=== PATIENT | female | born 1955 | race Caucasian/White ===

== ENCOUNTER → 2020-07-10 | Outpatient (CLI) | payer BC, OTHER ==
[~2020-07-10] VITALS: Ht 165.1 cm; Wt 86.2 kg
[~2020-07-10] MED LIST: COZAAR100 MG PO; MELOXICAM15 MG PO; NEURONTIN300 MG PO; TIZANIDINE HCL4 M2 PO; TRAMADOL 50 MG50 MG PO
--- NOTE | ~2020-07-10 | HPC ---
[facility] [address] [place] [address] PAIN MANAGEMENT CONSULTATION Name: LORI PEARSON Room #: REG Tamar ..#: [id number] Admission: 07/10/20 Attend Phys: Jose Kennedy DO Discharge: Date of : 53 Report #: [id number] THIS REPORT FOR: cc: MARLA HOLDER MD, JESSE MD Johnson, James E. DO ~ DATE OF SERVICE: 07/10/2020 REFERRING PHYSICIAN: Dr. Dima Nick. CHIEF COMPLAINT: Mid back pain. HISTORY OF PRESENT ILLNESS: As you know, the patient is a very pleasant 65-year-old female who reports acute onset of mid back pain, sustained an injury on 11/27/2019 when she lifted 50-pound bag of bird seed out of a cart causing instantaneous mid back pain. The patient believes she may have strained her back and trialled conservative treatment when her symptoms did not improve, she went to the Emergency Department. They reviewed the patient and concurred that she had probably sustained a strain and was given pain medications and sent home. She continues to experience increasing back pain and sought evaluation through her PCP who provided referral to see orthopedic spine surgery at [facility] [place]. The patient was seen at that clinic by a medical office technology instructor of the surgeon who sent the patient for further imaging. The patient underwent MRI of the lumbar spine, which showed acute/subacute vertebral compression fracture at T12 and subsequently underwent vertebral augmentation. Unfortunately, the augmentation did not provide much in the way of improvement in symptoms. She has been continuing to experience symptoms progressively worsening, sent to see [facility] where she was initially evaluated by nurse practitioner, who advised the patient, she would need to undergo fusion with instrumentation. The followup visit was with Dr. Nick, who advised the patient that surgical options would not be of benefit and that she should trial more conservative treatment. She was subsequently then referred to our clinic to discuss interventional treatment options. The patient continues to experience low back pain, bilateral lower extremity pain consistent with central canal stenosis, but is also experiencing some pain in and around the lower thoracic upper lumbar area, which may be related to facet arthropathy and possibly central canal stenosis due to the posterior retropulsion of the T12 vertebral body after fracture. The patient has been referred to our service to discuss those treatment options. The patient reports today pain is intermittent. She describes the pain as burning, aching and crushing. Places current pain score 3/10, daily average at 3/10, worst pain has been is 10/10. The patient states pain is exacerbated with standing, improves with sitting and lying down. She has been referred to our service to discuss interventional treatment options. [facility] [address] [place] [address] PAIN MANAGEMENT CONSULTATION Name: LORI PEARSON Room #: REG BECKY Calle#: [id number] Admission: 07/10/20 Attend Phys: Jose Kennedy DO Discharge: Date of : 53 Report #: [id number] PAST MEDICAL HISTORY: 1. Basal cell carcinoma. 2. Hypertension. 3. Hypercholesterolemia. 4. Thoracic compression fracture. PAST SURGICAL HISTORY: Kyphoplasty. SOCIAL HISTORY: The patient denies tobacco, alcohol, IV or illicit drug use. She is retired, retired years ago, not receiving workmen's compensation nor is she trying to obtain disability benefits. She is not in litigation in regards to her pain. REVIEW OF SYSTEMS: Positive for wearing corrective eyewear, low back pain, bilateral lower extremity pain with paresthesias. All other review of systems negative per 12-point review of systems other than those listed in history of present illness. Pain impact score 52/70 indicating severe interference of daily activities secondary to pain. IMAGING: MRI lumbar spine obtained on 04/05/2020 shows acute subacute T12 severe compression fracture with retropulsion. Mild canal narrowing. Multilevel lumbar spondylosis prominent at L4-L5, grade 1 anterolisthesis of L4 and L5, advanced facet arthropathy, moderate central canal and severe subarticular bilateral recess narrowing. PHYSICAL EXAMINATION: VITAL SIGNS: Blood pressure 191/110, pulse 114, respiratory rate 18 and unlabored. The patient is 95% on room air. Height 5 feet 5 inches tall, weight 190 pounds, BMI calculated 31.6. GENERAL: Well-developed, well-nourished, well-hydrated 65-year-old female, appearing her stated age. She is placing current pain score 3/10. HEENT: Normocephalic, atraumatic. Pupils equal, round and reactive. Extraocular muscles are intact. Sclerae nonicteric without injection. NEUROLOGIC: Cranial nerves 2-12 grossly intact. Speech is fluent. The patient is wearing a mask in compliance with COVID-19 regulations. LUNGS: Clear, no wheeze, rhonchi or rales. CARDIOVASCULAR: Regular. No appreciable gallop, no rub. ABDOMEN: Soft, nontender, mildly obese, normoactive bowel sounds. EXTREMITIES: Show no clubbing, no cyanosis, and no edema. MUSCULOSKELETAL: Upper extremity strength and lower extremity strength equal and symmetrical 5/5, intact to light touch from L1 through S2 dermatomes. Seated straight leg raising is negative. Supine straight leg raising is positive. Bashir's test is negative. Modified Gaenslen's positive for axial low back pain. Ankle clonus is negative. Babinski is negative. She is intact to light touch from T12-L1. She has full range of motion of the thoracolumbar spine. No spinous process tenderness. [facility] [address] [place] [address] PAIN MANAGEMENT CONSULTATION Name: LORI PEARSON Room #: REG [facility].#: [id number] Admission: 07/10/20 Attend Phys: Jose Kennedy DO Discharge: Date of : 53 Report #: [id number] ASSESSMENT: 1. Chronic upper lumbar pain. 2. Lumbar radiculopathy. 3. Spinal stenosis of lumbar spine. 4. Severe facet arthropathy of the lumbar spine. 5. Chronic intractable pain. PLAN: 1. Based on today's physical exam and history the patient has provided, the description the patient uses in regards to pain, it would appear that she is suffering from 2 different pain generators. It does appear she is having some pain from the lower thoracic upper lumbar area, potentially consistent with the fracture at T12. I have reviewed the patient's recent imaging, which shows kyphoplasty changes at the T12 level, but no change in the vertebral body height, it remains with at least 75% loss of height. This has caused angulation changes at T11 and L1. There does not appear to be fractures at these 2 levels based on imaging. There is no spinous process tenderness on the patient today. There does not appear to be any significant arthritic changes in the area. She does experience symptoms that are radiating bilaterally from the lumbar area towards the buttock and down the legs consistent with more of a radicular pain. The description the patient uses in regards to pain with burning, sharp, shooting sensations are more consistent with radiculopathy than with facet arthropathy. Based on our physical exam and the distribution of symptoms, we would recommend the following treatment options. We discussed physical therapy, stretching exercises and core strengthening as a treatment option. I do feel this would be quite beneficial and necessary long-term for this patient to regain some of the strength. She has lost avoiding movement across this area for the months prior to her kyphoplasty. Strengthening in this area will be necessary to maintain good mobility. We discussed with the patient suggestions in medication management, these could be in addition to current treatment including nonsteroidal anti-inflammatories and the use of low dose opioid for pain control. We discussed injection therapies to address symptoms including lumbar epidural injections to be performed at the L1-L2 level to address the symptoms from the mid lower thoracic upper lumbar area and the canal stenosis noted there as well as potentially addressing the L4-L5 level with injections in the area to address her lumbar radicular symptoms radiating from the low back down the legs. We also discussed with the patient spinal cord stimulator therapy as a treatment course and ultimately surgical decompression and instrumentation to address symptoms. After reviewing the risks and benefits of all proposed treatment options, the patient chose to begin the process of authorization to undergo an epidural injection under fluoroscopic guidance to address the lower thoracic upper lumbar symptoms. 2. The patient was advised that due to third alliance party payer restrictions, authorization would have to be obtained before the patient could undergo the [address] [address] PAIN MANAGEMENT CONSULTATION Name: LORI PEARSON Room #: REG KENNEYTamar Calle#: [id number] Admission: 07/10/20 Attend Phys: Jose Kennedy DO Discharge: Date of : 53 Report #: [id number] procedure. Authorization could take anywhere from 4-7 working days. We will begin this process immediately. Once this has been obtained, we will have the patient return to undergo this injection. 3. No medication changes made at today's visit. The patient will continue current medical therapy as prior prescribed. 4. We plan to see the patient back in followup visit once authorization has been obtained to undergo lumbar epidural injection under fluoroscopic guidance in hopes of improving pain. We are hopeful that this authorization quickly and have her return in a timely manner to undergo the procedure. 5. We wish to thank Dr. Dima Nick for the referral of this patient to our clinic. We will keep you apprised of response to treatment as we address her current symptoms. Again, we wish to thank you for the opportunity to see this patient in consultation. By: [id number] Jose Kennedy DO /nt
[2020-07-10 13:23] VITALS: BP 191/110
--- NOTE | 2020-07-10 13:26 | NUR ---
Pain Clinic Assessment: 1. History of Osteoarthritis: NONE History of Rheumatoid Arthritis: NONE 2. Height: 5 ft. 5 in. 165.1 cm. Weight: 190.0 lb. oz. 86.184 kg. Patient's BMI: 31.6 3. Vital Signs: BP: 191/110 Pulse: 114 Resp: 18 Temp: 02 Sat: 95 ECG Mon: 4. Pain Intensity: 3 5. Fall Risk: Dizziness: N Needs help standing or walking: N Fallen in the last 3 months: N Fall risk comments: 6. Patient on Blood Thinner: None 7. History of Hypertension: Y 8. Opioid Therapy greater than 6 weeks: N Opiate Contract Signed: 9. Risk Assessment Tool Provided: 10. Functional Assessment Tool: 11. Recreational Drug Use: Never Drug Type: Tobacco Use: Former Smoker Tobacco Type: Amount or Packs/day: How Many Years: Alcohol Use: No Frequency: Quant:
== END ==
LOC: PAIN 06:55
PROVIDERS: ATTEND Anesthesiology Pain Medicine
DX: M47.26 Other spondylosis with radiculopathy, lumbar region (principal); M48.061 Spinal stenosis, lumbar region without neurogenic claudication; G89.29 Other chronic pain

== ENCOUNTER → 2020-07-16 | Outpatient (CLI) | payer BC, OTHER ==
[~2020-07-16] VITALS: Ht 165.1 cm; Wt 87.4 kg
[2020-07-16 08:56] VITALS: BP 185/103
--- NOTE | 2020-07-16 09:18 | NUR ---
Pain Clinic Assessment: 1. History of Osteoarthritis: NONE History of Rheumatoid Arthritis: NONE 2. Height: 5 ft. 5 in. 165.1 cm. Weight: 192.6 lb. oz. 87.363 kg. Patient's BMI: 32.1 3. Vital Signs: BP: 185/103 Pulse: 102 Resp: 14 Temp: 02 Sat: 98 ECG Mon: 4. Pain Intensity: 8-9 5. Fall Risk: Dizziness: N Needs help standing or walking: N Fallen in the last 3 months: N Fall risk comments: 6. Patient on Blood Thinner: None 7. History of Hypertension: Y 8. Opioid Therapy greater than 6 weeks: N Opiate Contract Signed: 9. Risk Assessment Tool Provided: LOW 10. Functional Assessment Tool: 11. Recreational Drug Use: Never Drug Type: Tobacco Use: Former Smoker Tobacco Type: Amount or Packs/day: How Many Years: Alcohol Use: No Frequency: Quant:
--- NOTE | 2020-07-17 07:28 | HPC ---
[address] [address] PAIN MANAGEMENT CONSULTATION Name: LORI PEARSON Room #: REG Tamar ..#: [id number] Admission: 07/16/20 Attend Phys: Jose Kennedy DO Discharge: Date of : 53 Report #: [id number] THIS REPORT FOR: cc: MARLA HOLDER MD,MARLA Kennedy,Jose Norris DO ~ DATE OF SERVICE: 07/16/2020 REFERRING PHYSICIAN: Dr. Dima Nick. CHIEF COMPLAINT: Low back pain, bilateral lower extremity pain and mid back pain. HISTORY OF PRESENT ILLNESS: As you know, the patient is a 65-year-old female referred to our service to discuss interventional treatment options to address lumbar radicular symptoms involving low back, bilateral lower extremity pains and mid back pain. She was seen in consultation per the request of Dr. Nick, 07/10/2020. Established today's appointment to undergo the first in a series of lumbar epidural injections to address radicular pain. We have received authorization from the patient's third alliance party payer to undergo the procedure today. The patient is placing her current pain score at 8-9/10. She is describing no changes in medical history or injury or trauma that may have led to symptom continuation. ALLERGIES: SULFA. CURRENT MEDICATIONS: Tramadol 50 mg q. 8 hours p.r.n. for pain, meloxicam 15 mg once a day, and losartan 100 mg once a day. SOCIAL HISTORY: The patient denies tobacco, alcohol, IV or illicit drug use. She is retired, retired years ago, unaccompanied today. IMAGING: No new imaging is available. PHYSICAL EXAMINATION: VITAL SIGNS: Blood pressure 185/103, pulse 102, respiratory rate 14 and unlabored. The patient 98% on room air. Height 5 feet 5 inches tall, weight 182.6 pounds and BMI calculated 32.1. GENERAL: Well-developed, well-nourished, well-hydrated exogenously obese 65-year-old female appearing stated age, pain is rated today 8-9/10. HEENT: Normocephalic, atraumatic. Pupils are round, and responsive. Extraocular muscles are intact. The patient is wearing a mask in compliance with COVID-19 regulations. EXTREMITIES: Show no clubbing, no cyanosis, no edema. MUSCULOSKELETAL: Upper extremity strength remains symmetrical again today 5/5. Seated straight leg raising negative. Supine straight leg raising is positive. [facility] [address] [place] [address] PAIN MANAGEMENT CONSULTATION Name: LORI PEARSON Room #: REG [facility]#: [id number] Admission: 07/16/20 Attend Phys: Jose Kennedy DO Discharge: Date of : 53 Report #: [id number] Bashir's test is negative. Modified Gaenslen's positive for some axial low back pain. Ankle clonus negative. Babinski is negative. ASSESSMENT: 1. Chronic lumbar radiculopathy. 2. Spinal stenosis of lumbar spine. 3. Severe facet arthropathy of the lumbar spine. 4. Chronic upper lumbar pain. 5. Chronic intractable pain. PLAN: 1. The patient returns today in followup visit having received authorization to undergo first in a series of lumbar epidural injections under fluoroscopic guidance to address lumbar radicular pain. The patient has been advised of the risks and the benefits of a lumbar epidural injection. These risks include, but are not necessarily limited to bleeding, bruising, infection, worsening pain, no relief of pain, also risk of temporary or permanent muscle weakness, temporary or permanent nerve damage, possible paralysis, post-dural puncture headache and . The patient states understood and wished to proceed. 2. No medication changes made at today's visit. The patient will continue current medical therapy as prior prescribed. 3. We plan to see the patient back in followup visit in 31 days for the next in the series of lumbar epidural injections. We are hopeful the patient will see good and prolonged benefit with today's procedure. We will keep you apprised of her response to treatment. <ELECTRONICALLY SIGNED> By: Jose Kennedy DO 07/17/20 0728 1036 1236 Jose Kennedy DO /nt
--- NOTE | 2020-07-17 07:28 | O ---
[facility] [place] [address] OPERATIVE REPORT Name: LORI PEARSON Room #: REG [facility]#: [id number] Admission: 07/16/20 Attend Phys: Jose Kennedy DO Discharge: Date of : 53 Report #: [id number] THIS REPORT FOR: cc: MARLA HOLDER MD, JESSE MD Johnson, James E. DO ~ DATE OF SERVICE: 07/16/2020 PROCEDURE PERFORMED: L5-S1 interlaminar epidural steroid injection under fluoroscopic guidance. This is the first procedure of the first series that the patient is undergoing. After obtaining written consent, the patient was taken back to the fluoroscopy suite, placed in a prone position with pillow under the abdomen to decrease lumbar lordosis. The skin overlying the lumbosacral area was then prepped and draped in aseptic fashion. The L5-S1 vertebral interspace was then identified by AP fluoroscopy. The skin and subcutaneous tissue overlying the target site of injection was anesthetized with 3 mL 1% lidocaine. A 20-gauge 3.5-inch Tuohy needle was then advanced under fluoroscopic guidance towards the epidural space using a left paracentral approach. The epidural space was identified using loss of resistance to air technique. After negative aspiration for heme or cerebrospinal fluid, a total of 1 mL of Omnipaque was injected. A lumbar epidurogram was confirmed using both AP and lateral fluoroscopy. After negative aspiration for heme or cerebrospinal fluid, 5 mL of solution of containing 2 mL 40 mg per mL, 80 mg total triamcinolone along with 3 mL of lidocaine 1% was injected in increments. Contrast spread was noted in post epidural space. The needle was then retracted approximately half way and needle tract flushed with 1 mL of 1% lidocaine. Needle was then removed. There were no apparent sensory or motor deficits in the lower extremity following the procedure. A sterile bandage was placed over the injection site. The heart rate, pulse, oximetry and blood pressure were continuously monitored after the procedure. There were no apparent complications. The patient tolerated the procedure well and was carefully escorted to the recovery room in stable condition. There were no apparent complications. After meeting discharge criteria, the patient was then discharged home. <ELECTRONICALLY SIGNED> By: Jose Kennedy DO 07/17/20 0728 1036 1238 Jose Kennedy DO /nt
== END | disposition home or self-care (01) ==
LOC: PAIN 06:56
PROVIDERS: ATTEND Anesthesiology Pain Medicine
DX: M47.26 Other spondylosis with radiculopathy, lumbar region (principal); G89.29 Other chronic pain; M48.061 Spinal stenosis, lumbar region without neurogenic claudication; Z98.890 Other specified postprocedural states; Z79.899 Other long term (current) drug therapy; Z87.891 Personal history of nicotine dependence; Z88.2 Allergy status to sulfonamides